=== PATIENT | male | born 1975 | race Caucasian/White ===

== ENCOUNTER 2017-12-06 09:48 | Emergency (ER) | payer SELFPAY ==
[~2017-12-06] VITALS: Ht 180.3 cm; Wt 97.5 kg
[2017-12-06 09:52] VITALS: BP 122/56
[2017-12-06] MEDS ORDERED: KETOROLAC TROMETH 60MG/2ML VIAL IM ONE (11:15)
== END 2017-12-06 11:40 | disposition home or self-care (01) ==
LOC: ER 09:48
DX: S93.402A Sprain of unspecified ligament of left ankle, initial encounter (principal); I10 Essential (primary) hypertension; X50.9XXA Other and unspecified overexertion or strenuous movements or postures, initial encounter; Y93.89 Activity, other specified; Y99.8 Other external cause status; Y92.89 Other specified places as the place of occurrence of the external cause
CPT/HCPCS: 73610; 96372; 99284; J1885